=== PATIENT | male | born 1990 | race African-American/Black ===

== ENCOUNTER 2018-07-17 22:05 | Emergency (ER) | payer OTHER ==
[~2018-07-17] VITALS: Ht 165.1 cm; Wt 117.0 kg
[2018-07-17 22:12] VITALS: BP 135/60
--- NOTE | 2018-07-17 22:23 | NUR ---
PT TAKEN TO BED 1
--- NOTE | 2018-07-17 22:59 | NUR ---
PT BIB FAMILY FOR RT HAND PAIN, REDNESS AND SWELLING. PT STATES HE WAS "PULLING WEEDS" EARLIER TODAY AND THINK HE MAY HAVE BITTEN BY A SPIDER. NO OPEN SKIN NOTED, +CMS , SKIN IS WARM AND DRY, REDNESS NOTED TO KNUCKLES. PT IS LAYING IN BED MOTHER AT BEDSIDE.
--- NOTE | 2018-07-17 23:02 | NUR ---
Dr. Avila evaluating patient at bedside.
[2018-07-17] MEDS ORDERED: KETOROLAC 60 MG/2 ML VIAL IM ONE (23:10)
[2018-07-17 23:54] VITALS: BP 128/85
--- NOTE | 2018-07-17 23:54 | NUR ---
Patient discharged with v/s stable. Written and verbal after care instructions given and explained. Patient alert, oriented and verbalized understanding of instructions. Ambulatory with steady gait. All questions addressed prior to discharge. ID band removed. Patient advised to follow up with PMD. Rx of BACTRIM 800MG-160MG, MOTRIN 800MG AND PREDNISONE 20MG given. Patient educated on indication of medication including possible reaction and side effects. Opportunity to ask questions provided and answered.
== END 2018-07-17 23:54 | disposition home or self-care (01) ==
LOC: MED 22:05
DX: L03.113 Cellulitis of right upper limb (principal); E11.9 Type 2 diabetes mellitus without complications; Z88.1 Allergy status to other antibiotic agents
CPT/HCPCS: 96372; 99283; J1885

== ENCOUNTER 2018-08-16 20:38 | Inpatient (IN) | payer OTHER ==
[~2018-08-16] VITALS: Ht 165.1 cm; Wt 122.5 kg
[2018-08-16 21:02] VITALS: BP 164/83
[2018-08-16] MEDS ORDERED: HUMSLIDE (21:08)
[2018-08-16] MEDS ORDERED: GLIP10TE PO (21:08)
[2018-08-16] MEDS ORDERED: LISI10TA11 PO (21:08)
--- NOTE | 2018-08-16 21:15 | NUR ---
Note undone in EDM - 08/17/18 at 0241 by [email or web address] 28/M BIB PARENT TO ICU ROOM O1. STEADY GAIT. AO X4. FOLLOWS COMMANDS. CC: ELEVATED BLOOD SUGAR 500S mgdL. DENIES HAVING DINNER ON ZOCOR AND LISINOPRIL. HX OF OBESITY AND DM. DENIES PAIN. EVEN UNLABORED BREATHING. NO SIGNS OF ACUTE DISTRESS. CONTINUE TO MONITOR.
--- NOTE | 2018-08-16 21:15 | NUR ---
28/M BIB PARENT TO ER ROOM O1. STEADY GAIT. AO X4. FOLLOWS COMMANDS. CC: ELEVATED BLOOD SUGAR 500S mgdL. DENIES HAVING DINNER ON ZOCOR AND LISINOPRIL. HX OF OBESITY AND DM. DENIES PAIN. EVEN UNLABORED BREATHING. NO SIGNS OF ACUTE DISTRESS. CONTINUE TO MONITOR.
[2018-08-16] MEDS ORDERED: NACL 0.9% 2,000 ML IV ONE (21:19)
[2018-08-16 23:02] LABS: ALBUMIN 3.4 g/dL (3.4-5.0); ANION GAP 13.8 (8-16); CARBON DIOXIDE 27.4 mmol/L (21-32); POTASSIUM 4.2 mmol/L (3.5-5.1); TOTAL BILIRUBIN 0.1 mg/dL (0.0-1.0)
[2018-08-16] MEDS ORDERED: INSULIN REGULAR, HUMAN 100 UNIT/ML VIAL IVP ONE (23:10)
--- NOTE | 2018-08-17 00:07 | NUR ---
Patient appears to be resting in bed, with dad at bedside. Vital Signs within normal limits. Respirations even and unlabored.
--- NOTE | 2018-08-17 00:13 | NUR ---
PT AMB WITH RN RICH TO [facility].
--- NOTE | 2018-08-17 02:15 | NUR ---
ENDORSED CARE TO BETHEL ALMANZA FOR CONTINUITY OF CARE.
[2018-08-17 02:25] VITALS: BP 154/90
--- NOTE | 2018-08-17 02:25 | NUR ---
RECEIVED REPORT FROM DAYSHIFT NURSE AT BEDSIDE FOR CONTINUITY OF CARE. PT AAOX3. PT IV NOTED RFA 20G SALINE LOCK. NO SOB NO S/S OF DISTRESS ON RA. BED LOWERED CALL LIGHT WITHIN REACH WILL CONTINUE TO MONITOR.
--- NOTE | 2018-08-17 02:30 | NUR ---
PT WAS TOLD IN ER WE WOULD HAVE HIS CPAP READY FOR HIM WHEN HE CAME TO THE FLOOR. LET HIM KNOW I WOULD HAVE TO CHECK MD ORDERS TO GET CPAP MACHINE TO HIS ROOM. PT WAS ALSO EXPLAINED IF CPAP MACHINE WAS NOT ORDERED I WOULD HAVE TO CALL MD.
--- NOTE | 2018-08-17 02:40 | NUR ---
PAGEBal ESCOBEDO FOR ORDERS AND ORDER FOR BIPAP.
--- NOTE | 2018-08-17 02:45 | NUR ---
SPOKE TO MD ESCOBEDO RECEIVED VARIOUS ORDERS. I ADVISE MD IF I CAN GET AN ORDER FOR CPAP FOR SLEEPING, PT SUFFERS FROM SLEEP APNEA. MD ESCOBEDO AGREED AND TOLD ME TO PUT IN ORDERS.
[2018-08-17] MEDS ORDERED: INSULIN LANTUS 100 UNITS/ML 10 ML VIAL SUBQ SCH (02:55)
[2018-08-17] MEDS ORDERED: ACETAMINOPHEN 325 MG TAB PO PRN (02:55)
[2018-08-17] MEDS ORDERED: DEXTROSE 50% 50 ML SYR IVP PRN (02:55)
[2018-08-17] MEDS ORDERED: ONDANSETRON 4 MG/2 ML VIAL IVP PRN (02:55)
[2018-08-17] MEDS ORDERED: ZOLPIDEM 5 MG TAB PO PRN (02:55)
[2018-08-17] MEDS ORDERED: HYDROcodone/APAP 5/325 MG 1 TAB TAB PO PRN ×2 (02:55)
--- NOTE | 2018-08-17 03:30 | NUR ---
RT WAQAS WAS NOTIFIED. WAQAS STATED SHE NEEDED SPECIFIC SETTINGS ON MACHINE. AWARE AND PAGED MD ESCOBEDO.
[2018-08-17] MEDS: NACL 0.9% 1,000 ML IV SCH ×2 (03:31→14:19)
--- NOTE | 2018-08-17 04:10 | NUR ---
GREGG DIDNT ANSWER 1ST PAGED AND WAS PAGED A SECOND TIME.
--- NOTE | 2018-08-17 05:38 | NUR ---
PT SLEEPING NO SOB NO S/S OF DISTRESS ON RA. STILL WAITING ON MD ESCOBEDO CALL BACK. PAGED GREGG TWO TIMES.
--- NOTE | 2018-08-17 06:05 | NUR ---
PAGED MD ESCOBEDO FOR A THIRD TIME. WILL WAIT FOR CALL BACK.
[2018-08-17] MEDS: INSULIN LISPRO SLIDING SCALE 100 UNITS/ML VIAL SUBQ PRN ×4 (06:42→21:58)
[2018-08-17] MEDS: BLOOD GLUCOSE MONITORING 1 DEV DEV FS SCH ×4 (06:42→21:28)
--- NOTE | 2018-08-17 07:28 | NUR ---
ENDORSED REPORT TO DAYSHIFT NURSE AT BEDSIDE FOR CONTINUITY OF CARE.
--- NOTE | 2018-08-17 07:33 | NUR ---
RECEIVED PT FROM MANAGER CLINICAL RESEARCH NURSE, PT IS AWAKE AND ALERT AND IS SEATED ON THE BED WITH SIDE RAILS UP AND CALL LIGHT WITHIN REACH. PT HAS AN IV LINE ON THE RT FA G.20 WITH NS AT 80ML/HR, INFUSING, INTACT. PT DENIES PAIN AND NO SOB NOTED. PT IS AMBULATORY AND NO SIGN OF DISTRESS NOTED. WILL CONTINUE TO MONITOR PT.
--- NOTE | 2018-08-17 07:52 | NUR ---
PATIENT HAS BEEN SCREENED AND CATEGORIZED HIGH NUTRITION RISK. PATIENT WILL BE SEEN WITHIN 1-2 DAYS OF ADMISSION. 08/17/18-08/18/[address]
[2018-08-17 08:00] VITALS: BP 156/88
--- NOTE | 2018-08-17 08:37 | NUR ---
DR. VALDES CAME TO THE PT'S ROOM AND IS TALKING TO THE PT AND THE PT'S DAD IN THE CP NOW.
[2018-08-17] MEDS: LISINOPRIL 10 MG TAB PO SCH (08:51)
[2018-08-17] MEDS: ENOXAPARIN 40 MG/0.4 ML SYR SUBQ SCH (08:53)
--- NOTE | 2018-08-17 08:53 | NUR ---
PT IS AWAKE AND SEATED ON THE BED, VITAL SIGNS TAKEN PRIOR TO MEDICATION ADMINISTRATION AND IS WITHIN NORMAL LIMIT. PT TOLERATED THE ORAL MEDICATIONS, NO SIGN OF DISTRESS NOTED AND WILL MONITOR PT.
[2018-08-17] MEDS ORDERED: glipiZIDE ER 5 MG TABER PO SCH (09:00)
--- NOTE | 2018-08-17 09:25 | NUR ---
DR. VALDES MADE A VERBAL ORDER OF CBC AND HEMOGLOBIN A1C TO BE PLACE FOR THE PT, ACKNOWLEDGED, READ BACK AND VERIFIED AND WILL CARRY OUT MD ORDER NOW.
--- NOTE | 2018-08-17 09:52 | NUR ---
CM NOTE PER NORA [facility] (PCP) PH# [phone], THE PATIENT IS SCHEDULED FOR OUTPATIENT FOLLOW UP ON AUGUST 22, 2018 2:30 PM AT THE CLINIC AT [address] [place] [address]. I GAVE THE PATIENT A COPY OF HIS OUTPATIENT FOLLOW UP SCHEDULE.
[2018-08-17 12:44] LABS: BASOPHILS % (AUTO) 0.3 % (0.0-2.0); EOSINOPHILS # (AUTO) 0.3 K/uL (0-0.4); EOSINOPHILS % (AUTO) 2.7 % (0.0-4.0); HEMATOCRIT 39.8 % (36-52); HEMOGLOBIN 12.7 g/dL (12.0-18.0); LYMPHOCYTES # (AUTO) 4.7 K/uL (2.0-11.5); LYMPHOCYTES % (AUTO) 39.2 % (20.5-51.1); MEAN CORPUSCULAR HEMOGLOBIN 26 pg (27-31); MEAN CORPUSCULAR HGB CONC 32 g/dL (33-37); MEAN CORPUSCULAR VOLUME 82.8 fL (80-94); MONOCYTES # (AUTO) 0.9 K/uL (0.8-1.0); MONOCYTES % (AUTO) 7.4 % (1.7-9.3); NEUTROPHILS # (AUTO) 6.1 K/uL (1.8-7.7); NEUTROPHILS % (AUTO) 50.4 % (42.2-75.2); PLATELET COUNT (AUTO) 214 K/uL (140-450); RED CELL DISTRIBUTION WIDTH 14.1 % (11.6-13.7)
--- NOTE | 2018-08-17 13:39 | NUR ---
08/17/18 RD INITIAL ASSESSMENT COMPLETED PLEASE REFER TO NUTRITION ASSESSMENT UNDER CARE ACTIVITY FOR ESTIMATED NUTRITIONAL NEEDS. 1. CONTINUE 60 GM CCHO DIET TOLERATED 2. RD ATTEMPTED DM NUTRITION EDUCATION, LEFT AT BEDSIDE 3. RD TO FOLLOW-UP 5-7 DAYS, LOW RISK DAYANARA JOSEPH, RD
[2018-08-17 16:00] VITALS: BP 131/99
--- NOTE | 2018-08-17 16:40 | NUR ---
PT IS AWAKE AND VITAL SIGN TAKEN AND IS WITHIN NORMAL LIMITS, BLOOD GLUCOSE CHECK DONE AND RESULT IS 217, INSULIN COVERAGE NEEDED. NO SIGN OF DISTRESS NOTED. WILL MONITOR PT.
--- NOTE | 2018-08-17 16:55 | NUR ---
PT'S MON CAME TO THE ROOM AND MOTHER INFORMED THAT PT SHOULD ONLY BE GIVEN 800 CALORIES/DAY SO TO STABILIZE THE BLOOD SUGAR PER ROUTINE AT HOME. ACKNOWLEDGED AND WILL ENDORSE TO DRAW FRAME OPERATOR NURSE.
--- NOTE | 2018-08-17 19:20 | NUR ---
ENDORSED PT TO POLITICAL ORGANIZER NURSE FOR CONTINUITY OF CARE, PT TIS STABLE AT THIS TIME.
--- NOTE | 2018-08-17 19:21 | NUR ---
RECEIVED BEDSIDE REPORT FROM ABI ALMANZA. PT IS A&OX4. ON ROOM AIR. NO S/S OF DISTRESS. PT HAS CONCERNS REGARDING CPAP MACHINE FOR TONIGHT AND MED HE NORMAL GETS GLIPIZIDE 10MG BID WILL CALL MD FOR ORDER. IV ON R FA 20G IVF INFUSING PER ORDERS. SKIN INTACT. CALL LIGHT WITHIN REACH.
--- NOTE | 2018-08-17 19:40 | NUR ---
PTS FATHER CAME AND BROUGHT HOMES CPAP FOR SETTINGS. RT RECEIVED. HE HAS CONCERNS REGARDING HIS DIET AND WROTE DOWN WHAT PT CAN EAT. WILL ENDORSED TO CODER OPERATOR.
[2018-08-17] MEDS ORDERED: glipiZIDE 10 MG TAB PO SCH (21:00)
[2018-08-17] MEDS: glipiZIDE 10 MG TAB PO SCH (21:53)
--- NOTE | 2018-08-17 21:53 | NUR ---
DUE MEDICATIONS GIVEN PT TOLERATED WELL. ON CPAP MACHINE. ALL NEEDS MET AT THIS TIME. WILL CONTINUE TO MONITOR.
--- NOTE | 2018-08-17 23:35 | NUR ---
PT COMPLAINED THAT CPAP MASK WAS ON TO TIGHT AND ALSO THAT THE AIR WAS TO MUCH DESPITE BEING THE SAME SETTINGS PT HAS AT HOME WHICH IS CPAP 13 21%. DESPITE EXPLAINING BENEFITS OF CPAP TO PT, PT REFUSED TO BE PLACED BACK ON CPAP. SAT 97 HR 76 RR 18. PT IS ON RA. WILL CONT TO MONITOR PT.
[2018-08-18] VITALS: BP 137/51
--- NOTE | 2018-08-18 | NUR ---
VITAL SIGNS ARE WITHIN NORMAL LIMITS. PT NOW REFUSING CPAP. ALL NEEDS MET AT THIS TIME. WILL CONTINUE TO MONITOR.
[2018-08-18] MEDS: NACL 0.9% 1,000 ML IV SCH ×4 (01:15→22:31)
--- NOTE | 2018-08-18 04:00 | NUR ---
PT IS SLEEPING COMFORTABLY IN BED. NO S/S OF DISTRESS. CALL LIGHT WITHIN REACH.
[2018-08-18 06:29] LABS: BASOPHILS % (AUTO) 0.2 % (0.0-2.0); EOSINOPHILS # (AUTO) 0.4 K/uL (0-0.4); HEMATOCRIT 39.5 % (36-52); HEMOGLOBIN 12.7 g/dL (12.0-18.0); LYMPHOCYTES # (AUTO) 4.8 K/uL (2.0-11.5); LYMPHOCYTES % (AUTO) 37.9 % (20.5-51.1); MEAN CORPUSCULAR HEMOGLOBIN 27 pg (27-31); MEAN CORPUSCULAR HGB CONC 32 g/dL (33-37); MEAN CORPUSCULAR VOLUME 83.1 fL (80-94); NEUTROPHILS # (AUTO) 6.4 K/uL (1.8-7.7); NEUTROPHILS % (AUTO) 50.9 % (42.2-75.2); PLATELET COUNT (AUTO) 213 K/uL (140-450); RED BLOOD CELL COUNT(AUTO) 4.75 MIL/uL (4.20-6.10); RED CELL DISTRIBUTION WIDTH 13.7 % (11.6-13.7); WHITE BLOOD COUNT (AUTO) 12.5 K/uL (4.8-10.8)
[2018-08-18] MEDS: BLOOD GLUCOSE MONITORING 1 DEV DEV FS SCH ×4 (06:31→20:47)
[2018-08-18 06:33] LABS: ALBUMIN 2.6 g/dL (3.4-5.0); ANION GAP 11.3 (8-16); CARBON DIOXIDE 27.7 mmol/L (21-32); CREATININE 0.6 mg/dL (0.7-1.3); TOTAL BILIRUBIN 0.3 mg/dL (0.0-1.0)
[2018-08-18] MEDS: glipiZIDE 10 MG TAB PO SCH ×2 (06:34→17:06)
[2018-08-18] MEDS: INSULIN LISPRO SLIDING SCALE 100 UNITS/ML VIAL SUBQ PRN ×5 (06:35→20:49)
--- NOTE | 2018-08-18 07:34 | NUR ---
GAVE BEDSIDE REPORT. ENDORSED PT IN STABLE CONDITION.
--- NOTE | 2018-08-18 07:38 | NUR ---
RECEIVED BEDSIDE REPORT FROM STARCH FACTORY LABORER NURSE. PT IS A/OX4. DENIES PAIN. NO SIGNS OF DISTRESS NOTED. ON RA. ABLE TO FOLLOW COMMEND. SKIN WARM, CLEAN AND INTACT. RESPIRATION UNLABORED AT 18, REGULAR. IV ON R FA 20G, PATENT AND CLEAN, INFUSING PER MD ORDER. ABLE TO AMBULATE WITH STEADY GAIT. DISCUSSED PLAN OF CARE WITH PATIENT, AND PATIENT VERBALIZED UNDERSTANDING. BED IN LOW POSITION, CALL LIGHT WITHIN REACH.
[2018-08-18 08:00] VITALS: BP 144/69
[2018-08-18] MEDS ORDERED: INSULIN LANTUS 100 UNITS/ML 10 ML VIAL SUBQ SCH (09:30)
--- NOTE | 2018-08-18 09:30 | NUR ---
PT IS AMBULATING AROUND THE DING WAY. NO SIGNS OF DISTRESS NOTED.
[2018-08-18] MEDS: LISINOPRIL 10 MG TAB PO SCH (09:59)
[2018-08-18] MEDS: ENOXAPARIN 40 MG/0.4 ML SYR SUBQ SCH (10:12)
--- NOTE | 2018-08-18 10:16 | NUR ---
ADMINISTERED MEDS PER MED ORDER. PT TOLERATED WELL. NO SIGNS OF DISTRESS NOTED.
[2018-08-18] MEDS: INSULIN LISPRO 100 UNITS/ML VIAL SUBQ SCH ×2 (11:30→17:12)
--- NOTE | 2018-08-18 12:21 | NUR ---
ADMINISTERED MED PER ORDER. PT TOLERATED WELL.
[2018-08-18 16:00] VITALS: BP 157/77
--- NOTE | 2018-08-18 16:30 | NUR ---
IV INFILTRATED. D/C IV ON THE R FA, IV CANNULA INTACT, NO BLEEDING AT IV SITE. RESTARTED IV 22G ON L FA, INTACT AND PATENT, INFUSING PER MD ORDER. .
--- NOTE | 2018-08-18 17:35 | NUR ---
PT IS AMBULATING WITH STEADY GAIT AROUND THE DING WAY. NO SIGN OF DISTRESS NOTED.
--- NOTE | 2018-08-18 19:32 | NUR ---
GAVE BEDSIDE REPORT TO SCOREBOARD OPERATOR NURSE FOR CONTINUITY OF CARE. PT IS IN STABLE CONDITION.
--- NOTE | 2018-08-18 19:35 | NUR ---
RECEIVED FROM AM RN AWAKE AND ALERT. DX. UNCONTROLLED DM. PT. IS AMBULATING THE HALLWAYS. IVF SITE INTACT AND NO INFILTRATION TO LEFT FOREARM. NO PAIN COMPLAINT DONE. ENCOURAGED TO CALL FOR ANY HELP HE MAY NEED.
--- NOTE | 2018-08-18 19:50 | NUR ---
PT. BACK IN BED AND TALKING TO FAMILY MEMBER ON THE PHONE. IVF ALARMING RT NO BATTERY ATTACHED TO IT. HOOKED UP BATTERY. NO FURTHER COMPLAINTS DONE. GOOD AFFECT.
--- NOTE | 2018-08-18 20:53 | NUR ---
BLOOD SUGAR 330 PER FINGERSTICK CHECK DONE . COVERED WITH HUMALOG 8 UNITS PER SLIDING SCALE. ENCOURAGED TO SLEEP AND REST. STILL WATCHING . VERBALIZES NEEDS WELL IN [place]. ROM X 4.
--- NOTE | 2018-08-18 21:48 | NUR ---
AWAKE AND ALERT UP IN CHAIR AT THIS TIME RESPONSIVE TO AR MANAGER VERBAL COMMANDS PATIENT REFUSES TO WEAR CPAP TO MASK PATIENT STATES "IT IS NOT MY MASK AND THERE'S A LEAK I DON'T WANT TO WEAR IT" AR MANAGER STATED TO PATIENT THAT IF YOU WANT TO GO ON THE CPAP THEN TO USE YOUR CALL BUTTON THAT IS WITHIN REACH MASHA/RN NOTIFIED
--- NOTE | 2018-08-19 00:10 | NUR ---
PT. SLEEPING. WOKE UP EASILY WHEN TOUCHED. ABLE TO VERBALIZE NEEDS WELL. NO SOB. NO RESTLESSNESS NOTED. REFUSED CPAP ON PER RESPIRATORY THERAPIST. 02 SAT ROOM AIR AT THIS TIME 97 %.
[2018-08-19 00:48] VITALS: BP 143/61
--- NOTE | 2018-08-19 03:00 | NUR ---
SLEEPING. NO RESTLESSNESS. ABLE TO USE CALL LIGHT FOR HELP. IVF SITE INTACT AND NO S/S OF INFILTRATION.
--- NOTE | 2018-08-19 05:44 | NUR ---
SLEEPING . NO COMPLAINTS. NO S/S OF HYPOGLYCEMIA NOTED. PT. INDEPENDENT. NO SOB THIS SHIFT.
[2018-08-19] MEDS: BLOOD GLUCOSE MONITORING 1 DEV DEV FS SCH ×4 (05:56→21:03)
[2018-08-19] MEDS: glipiZIDE 10 MG TAB PO SCH ×2 (06:00→17:27)
[2018-08-19] MEDS: INSULIN LISPRO SLIDING SCALE 100 UNITS/ML VIAL SUBQ PRN ×3 (06:01→21:04)
[2018-08-19] MEDS: INSULIN LISPRO 100 UNITS/ML VIAL SUBQ SCH (06:09)
--- NOTE | 2018-08-19 06:10 | NUR ---
HUMALOG INSULIN 5 UNITS NOT ADMINISTERED RT PT. COVERED WITH HUMALOG INSULIN PER SLIDING SCALE.
--- NOTE | 2018-08-19 07:05 | NUR ---
RECEIVED BEDSIDE REPORT FROM DISTRICT SCOUT EXECUTIVE NURSE. AOX4. DENIES PAIN. ON RA. RESPIRATION EVEN AND UNLABORED. IV ON L FA 22G, CLEAN AND INTACT, INFUSING PER MD ORDER. SKIN INTACT, CLEAN AND DRY. ABLE TO AMBULATE WITH STEADY GAIT. DISCUSSED PLAN OF CARE WITH PATIENT, AND PATIENT VERBALIZED UNDERSTANDING. SAFETY MEASURES IN PLACE. CALL LIGHT WITHIN REACH.
[2018-08-19 07:52] LABS: BASOPHILS % (AUTO) 0.4 % (0.0-2.0); EOSINOPHILS # (AUTO) 0.3 K/uL (0-0.4); EOSINOPHILS % (AUTO) 3.1 % (0.0-4.0); HEMATOCRIT 38.8 % (36-52); HEMOGLOBIN 12.6 g/dL (12.0-18.0); LYMPHOCYTES # (AUTO) 3.7 K/uL (2.0-11.5); LYMPHOCYTES % (AUTO) 35.8 % (20.5-51.1); MEAN CORPUSCULAR HEMOGLOBIN 27 pg (27-31); MEAN CORPUSCULAR HGB CONC 32 g/dL (33-37); MONOCYTES % (AUTO) 9.7 % (1.7-9.3); NEUTROPHILS # (AUTO) 5.3 K/uL (1.8-7.7); PLATELET COUNT (AUTO) 227 K/uL (140-450); RED BLOOD CELL COUNT(AUTO) 4.67 MIL/uL (4.20-6.10); RED CELL DISTRIBUTION WIDTH 13.6 % (11.6-13.7); WHITE BLOOD COUNT (AUTO) 10.5 K/uL (4.8-10.8)
[2018-08-19 08:00] VITALS: BP 179/83
[2018-08-19 08:01] LABS: ALBUMIN 2.6 g/dL (3.4-5.0); ANION GAP 10.9 (8-16); CARBON DIOXIDE 27.2 mmol/L (21-32); CREATININE 0.6 mg/dL (0.7-1.3); POTASSIUM 4.1 mmol/L (3.5-5.1); TOTAL BILIRUBIN 0.4 mg/dL (0.0-1.0)
--- NOTE | 2018-08-19 08:32 | NUR ---
PT COMPLAINED THAT HIS SKIN AROUND THE IV SITE IS ITCHY AND STATED "THE TAPE MAKES MY SKIN ITCHY AND I NEED TO CHANGE THE TAPE AROUND THE SITE". CHANGED THE TAPE AND TRANSPARENT FILM DRESSING.
[2018-08-19] MEDS: LISINOPRIL 10 MG TAB PO SCH (08:35)
[2018-08-19] MEDS: ENOXAPARIN 40 MG/0.4 ML SYR SUBQ SCH (08:36)
--- NOTE | 2018-08-19 08:36 | NUR ---
DR VALDES IS TALKING TO THE PT AT THE BEDSIDE.
--- NOTE | 2018-08-19 08:43 | NUR ---
ADMINISTERED MEDS PER MD ORDER. PT IS TOLERATED WELL. NO SIGNS OF DISTRESS NOTED.
--- NOTE | 2018-08-19 08:51 | NUR ---
D/C IVF PER MD ORDER.
[2018-08-19] MEDS ORDERED: INSULIN LANTUS 100 UNITS/ML 10 ML VIAL SUBQ SCH (09:00)
--- NOTE | 2018-08-19 12:17 | NUR ---
ADMINISTERED HUMALOG PER MD ORDER, ACCORDING TO THE HUMALOG SLIDING SCALE.
--- NOTE | 2018-08-19 15:20 | NUR ---
PT IS DOING HOMEWORK ON HIS BED. NO SIGN OF DISTRESS NOTED.
[2018-08-19 16:00] VITALS: BP 141/75
--- NOTE | 2018-08-19 17:18 | NUR ---
PATIENT IS WALKING AROUND THE DING WAY WITH STEADY GAIT.
[2018-08-19] MEDS: INSULIN NPH HUM/REG INSULIN HM 100 UNIT/ML 10 ML VIAL SUBQ SCH (17:29)
--- NOTE | 2018-08-19 19:16 | NUR ---
GAVE BEDSIDE REPORT TO SSN/SSBN ASSISTANT NAVIGATOR NURSE FOR CONTINUITY OF CARE. PT IS IN STABLE CONDITION.
--- NOTE | 2018-08-19 19:17 | NUR ---
RECD. SITTING ON BED, AWAKE, A/OX4, CHILDISH. RESPIRATION EVEN AND UNLABORED. WATCHING TV. IV SALINE LOCK AT THE LEFT FOREARM G22, PATENT AND INTACT. PLAN OF CARE FOR THE SHIFT DISCUSSED. VERBALIZED UNDERSTANDING. DENIES PAIN 0/10.
--- NOTE | 2018-08-19 21:05 | NUR ---
SNACK GIVEN FOR THE NIGHT. ATE 100%.
--- NOTE | 2018-08-19 23:00 | NUR ---
STILL AWAKE, WATCHING TV.
[2018-08-20] VITALS: BP 144/65
--- NOTE | 2018-08-20 | NUR ---
REFUSED TO BE PUT ON CPAP. EXPLAINED IT'S IMPORTANCE, STILL REFUSED.
--- NOTE | 2018-08-20 00:30 | NUR ---
SLEEPING COMFORTABLY IN BED.
--- NOTE | 2018-08-20 04:00 | NUR ---
STILL SLEEPING IN BED. NO COMPLAINT OF PAIN 0/10.
[2018-08-20] MEDS: BLOOD GLUCOSE MONITORING 1 DEV DEV FS SCH ×2 (05:40→11:30)
[2018-08-20] MEDS: INSULIN LISPRO SLIDING SCALE 100 UNITS/ML VIAL SUBQ PRN ×2 (05:43→12:52)
[2018-08-20] MEDS: glipiZIDE 10 MG TAB PO SCH (06:49)
[2018-08-20] MEDS: INSULIN NPH HUM/REG INSULIN HM 100 UNIT/ML 10 ML VIAL SUBQ SCH (06:51)
--- NOTE | 2018-08-20 07:25 | NUR ---
ENDORSED TO AM SHIFT NURSE FOR CONTINUITY OF CARE.
--- NOTE | 2018-08-20 07:26 | NUR ---
RECEIVED REPORT FROM INBOUND TELEMARKETER NURSE. PT IN STABLE CONDITION. RESPIRATIONS EVEN AND UNLABORED. IV INTACT AND PATENT. CALL LIGHT AT BEDSIDE. BED IN LOW POSITION. WILL CONTINUE TO MONITOR.
[2018-08-20 07:53] LABS: BASOPHILS % (AUTO) 0.2 % (0.0-2.0); EOSINOPHILS # (AUTO) 0.4 K/uL (0-0.4); EOSINOPHILS % (AUTO) 3.1 % (0.0-4.0); HEMATOCRIT 40.3 % (36-52); LYMPHOCYTES # (AUTO) 4.4 K/uL (2.0-11.5); LYMPHOCYTES % (AUTO) 36.5 % (20.5-51.1); MEAN CORPUSCULAR HEMOGLOBIN 27 pg (27-31); MEAN CORPUSCULAR HGB CONC 32 g/dL (33-37); MEAN CORPUSCULAR VOLUME 83.6 fL (80-94); MONOCYTES # (AUTO) 1.2 K/uL (0.8-1.0); MONOCYTES % (AUTO) 10.1 % (1.7-9.3); NEUTROPHILS # (AUTO) 6.1 K/uL (1.8-7.7); NEUTROPHILS % (AUTO) 50.1 % (42.2-75.2); PLATELET COUNT (AUTO) 250 K/uL (140-450); RED BLOOD CELL COUNT(AUTO) 4.82 MIL/uL (4.20-6.10); WHITE BLOOD COUNT (AUTO) 12.1 K/uL (4.8-10.8)
[2018-08-20 08:00] VITALS: BP 172/79
[2018-08-20 08:01] LABS: ANION GAP 8.9 (8-16); CARBON DIOXIDE 30.2 mmol/L (21-32); CREATININE 0.7 mg/dL (0.7-1.3); POTASSIUM 4.1 mmol/L (3.5-5.1); TOTAL BILIRUBIN 0.4 mg/dL (0.0-1.0)
[2018-08-20] MEDS: LISINOPRIL 10 MG TAB PO SCH (09:07)
[2018-08-20] MEDS: ENOXAPARIN 40 MG/0.4 ML SYR SUBQ SCH (09:08)
--- NOTE | 2018-08-20 09:16 | NUR ---
GAVE ORDERED DUE MEDICATION AT THIS TIME. PT TOLERATED WELL. WILL CONTINUE TO MONITOR.
[2018-08-20] MEDS ORDERED: HUM7030 SUBQ (09:57)
--- NOTE | 2018-08-20 10:44 | NUR ---
PT WALKING AROUND TELE UNIT IN STABLE CONDITION. WILL CONTINUE TO MONITOR.
--- NOTE | 2018-08-20 12:02 | NUR ---
PT GIVEN 6 UNITS INSULIN. BLOOD SUGAR 282. PT IN STABLE CONDITION. WILL CONTINUE TO MONITOR.
--- NOTE | 2018-08-20 13:07 | NUR ---
GAVE DISCHARGE INSTRUCTIONS AND PRESCRIPTION FOR HOME PHARMACY, PT VERBALIZED UNDERSTANDING AT THIS TIME. IV REMOVED, LUMEN INTACT. ID BAND REMOVED. PT REFUSED WHEELCHAIR STATING HE WANTED TO GET HIS STEPS IN. PT WAS ESCORTED TO LOBBY WHERE FAMILY WAS WAITING WITH CAR. PT IN STABLE CONDITION.
== END 2018-08-20 14:10 | disposition home or self-care (01) | DRG 420 ==
LOC: MED 20:38 → MTU 08-17 01:42
PROVIDERS: ADMIT Internal Medicine; ATTEND Internal Medicine
PROC: 5A09357 Assistance with Respiratory Ventilation, Less than 24 Consecutive Hours, Continuous Positive Airway Pressure (ICD-10-PCS; principal; 2018-08-18)
DX: E11.65 Type 2 diabetes mellitus with hyperglycemia (principal); Z68.41 Body mass index [BMI] 40.0-44.9, adult; E87.1 Hypo-osmolality and hyponatremia; E66.9 Obesity, unspecified; I10 Essential (primary) hypertension; G47.30 Sleep apnea, unspecified; Z88.1 Allergy status to other antibiotic agents; Z88.8 Allergy status to other drugs, medicaments and biological substances; Z91.11 Patient's noncompliance with dietary regimen
CPT/HCPCS: 36415; 80053; 82948; 83036; 83690; 85025; 87081; 94660; 96374; 99285; J1650; J1815; J7030

== ENCOUNTER 2018-11-23 19:25 | Observation (INO) | payer OTHER ==
[~2018-11-23] VITALS: Ht 162.6 cm; Wt 122.5 kg
[~2018-11-23 19:25] MED LIST: GLIP10TE PO; HUM7030 SUBQ; LISI10TA11 PO
[2018-11-23 19:43] VITALS: BP 176/76
--- NOTE | 2018-11-23 19:44 | NUR ---
PT AMBULATED TO ER BED 2
--- NOTE | 2018-11-23 20:00 | NUR ---
28/M BIB FATHER, C/O ELEVATED BLOOD SUGAR. 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 BLOOD GLUCOSE 421 AT THIS TIME. PT DENIES FEVER, CP, N/V/D, CONSTIPATION. AOX4, SKIN NORMAL WARM DRY, RR EVEN AND UNLABORED. HX DM, HTN, CRAVING SYNDROME RX HUMULIN 75-25 46 UNITS BID, GLIPIZIDE, LISINOPRIL
[2018-11-23] MEDS ORDERED: NACL 0.9% 1,000 ML IV ONE (20:10)
[2018-11-23 20:41] LABS: BASOPHILS # (AUTO) 0.1 K/uL (0.00-0.22); BASOPHILS % (AUTO) 0.5 % (0.0-2.0); EOSINOPHILS # (AUTO) 0.2 K/uL (0-0.4); EOSINOPHILS % (AUTO) 1.5 % (0.0-4.0); HEMATOCRIT 41.1 % (36-52); HEMOGLOBIN 13.2 g/dL (12.0-18.0); LYMPHOCYTES # (AUTO) 3.7 K/uL (2.0-11.5); LYMPHOCYTES % (AUTO) 32.4 % (20.5-51.1); MEAN CORPUSCULAR HEMOGLOBIN 27 pg (27-31); MEAN CORPUSCULAR HGB CONC 32 g/dL (33-37); MEAN CORPUSCULAR VOLUME 83.7 fL (80-94); MONOCYTES # (AUTO) 0.9 K/uL (0.8-1.0); MONOCYTES % (AUTO) 7.7 % (1.7-9.3); NEUTROPHILS # (AUTO) 6.6 K/uL (1.8-7.7); NEUTROPHILS % (AUTO) 57.9 % (42.2-75.2); PLATELET COUNT (AUTO) 265 K/uL (140-450); RED BLOOD CELL COUNT(AUTO) 4.91 MIL/uL (4.20-6.10); WHITE BLOOD COUNT (AUTO) 11.4 K/uL (4.8-10.8)
[2018-11-23 20:57] LABS: ALBUMIN 3.3 g/dL (3.4-5.0); ANION GAP 13.4 (8-16); CREATININE 0.9 mg/dL (0.7-1.3); POTASSIUM 4.4 mmol/L (3.5-5.1); TOTAL BILIRUBIN 0.1 mg/dL (0.0-1.0)
[2018-11-23] MEDS ORDERED: INSULIN REGULAR, HUMAN 100 UNIT/ML VIAL IVP ONE ×2 (21:45→23:40)
[2018-11-23 21:50] LABS: APPEARANCE,URINE CLEAR (CLEAR); BILIRUBIN,URINE NEGATIVE (NEGATIVE); BLOOD, URINE NEGATIVE (NEGATIVE); COLOR,URINE YELLOW (YELLOW); LEUKOCYTE ESTERASE ,URINE NEGATIVE (NEGATIVE); NITRITE, URINE NEGATIVE (NEGATIVE); UGLUCOSE 3+ (NEGATIVE)
--- NOTE | 2018-11-23 22:42 | NUR ---
PT LAYING IN BED, FATHER AT BEDSIDE. RR EVEN AND UNLABORED. VSS. BLOOD GLUCOSE 392 AT THIS TIME AFTER 1L NS BOLUS AND HUMULIN R [address] MARQUEZ MADE AWARE
--- NOTE | 2018-11-24 00:40 | NUR ---
PT LAYING IN BED, FATHER AT BEDSIDE. RR EVEN AND UNLABORED. VSS. BLOOD GLUCOSE 446 AT THIS TIME AFTER MEDS. DR MARQUEZ MADE AWARE
[2018-11-24] MEDS ORDERED: INSU10SU2 SC (01:04)
--- NOTE | 2018-11-24 02:48 | NUR ---
RECEIVED TELEPHONE ORDER FROM DR PLATA, ADMIT ORDER DX DIABETES POOR CONTROL, MEDSURG, OBSERVATION ONLY, AND INSULIN SLIDING SCALE ORDER SET.
[2018-11-24] MEDS ORDERED: DEXTROSE 50% 50 ML SYR IVP PRN ×2 (02:50→06:15)
--- NOTE | 2018-11-24 02:53 | NUR ---
PT LAYING IN BED, RR EVEN AND UNLABORED. VSS. ALL NEEDS MET.
--- NOTE | 2018-11-24 03:03 | NUR ---
Patient will be admitted to care of DR PLATA. Admited to [facility]. Will go to [id number]. Belongings list completed. Report to CAMI FLANAGAN.
--- NOTE | 2018-11-24 03:19 | NUR ---
RECEIVED FROM ER PER WHEELCHAIR AWAKE AND ALERT. ABLE TO CARRY A CONVERSATION WELL. VERBALIZES WELL IN [place]. NO SOB. DENIES ANY PAIN AT THIS TIME. ORIENTED TO CALL LIGHT USE AND TO SURROUNDINGS. DX. OF DM POOR CONTROL . PT. SKIN INTACT AND AMBULATING WELL. IVF SITE TO [facility] . GOOD BLOOD RETURN. ENCOURAGED TO CALL FOR ANY HELP HE MAY NEED OR IF IN PAIN. "OK"
[2018-11-24 03:37] VITALS: BP 141/56
--- NOTE | 2018-11-24 05:11 | NUR ---
PT. BEEN SLEEPING WELL. NO COMPLAINTS DONE. ABLE TO VERBALIZE NEEDS WELL. ROM X 4. CLEAR SPEECH. NO RESTLESSNESS.
[2018-11-24] MEDS: BLOOD GLUCOSE MONITORING 1 DEV DEV FS SCH ×4 (06:03→20:44)
--- NOTE | 2018-11-24 06:11 | NUR ---
MD PLATA PAGED AND CALLED BACK IMMEDIATELY. INFORMED HIM THAT HIS PT. HAS BLOOD SUGAR OF 489 PER FINGERSTICK. ORDERED TO GIVE 16 UNITS. PT. MADE AWARE.
[2018-11-24] MEDS ORDERED: INSULIN LISPRO SLIDING SCALE 100 UNITS/ML VIAL SUBQ PRN (06:15)
[2018-11-24] MEDS ORDERED: ONDANSETRON 4 MG/2 ML VIAL IVP PRN (06:15)
[2018-11-24] MEDS: INSULIN LISPRO SLIDING SCALE 100 UNITS/ML VIAL SUBQ PRN ×5 (06:20→20:46)
--- NOTE | 2018-11-24 06:37 | NUR ---
PT. REFUSED TO WAKE UP WHEN HUMALOG WAS ADMINISTERED. REFUSED TO OPEN EYES INSPITE OF MAKING HIM WAKE UP BY TOUCHING HIM AND SWAYING HIM BACK AND FORT. CALLED RAPID RESPONSE. WHEN RAPID RESPONSE WAS HERE HE FINALLY WOKE UP BY CONSTANT SHAKING BY CNAS AND NURSED. HE SAID "WHAT" HE STATED HE IS A DEEP SLEEPER AND DOES NOT WAKE UP EASILY. MST DIRECTOR WAS HERE WHEN IT HAPPENED. AWARE OF SITUATION. DIRECTOR ORDERED TO PUT PT. ON TELEMETRY MONITORING.
--- NOTE | 2018-11-24 07:17 | NUR ---
NS IVF STARTED ORDERED AT 125 ML/H. PT. SLEEPING AT THIS TIME. CALL LIGHT WITH IN REACH. WILL ENDORSE TO NEXT RN FOR CONTINUITY OF CARE.
[2018-11-24] MEDS: NACL 0.9% 1,000 ML IV SCH ×3 (07:18→22:19)
--- NOTE | 2018-11-24 07:23 | NUR ---
RECEIVED REPORT FROM GOLF BALL WINDER RN. PT IS AAOX4. NO SOB OR PAIN AT THIS TIME. DISCUSSED PLAN OF CARE WITH PT AND ORIENTED TO CALL LIGHT USE AND TO SURROUNDINGS. PT SKIN INTACT AND AMBULATING WELL. IVF SITE TO [facility]#20 . PATENT AND INTACT. WILL ROUND FREQUENTLY ON PT. CALL LIGHT WITHIN REACH, BED IN LOWEST POSITION.
[2018-11-24] MEDS ORDERED: BLOOD GLUCOSE MONITORING 1 DEV DEV FS SCH (07:30)
[2018-11-24 08:00] VITALS: BP 173/74
--- NOTE | 2018-11-24 08:16 | NUR ---
PATIENT HAS BEEN SCREENED AND CATEGORIZED HIGH NUTRITION RISK. PATIENT WILL BE SEEN WITHIN 1-2 DAYS OF ADMISSION. 11/24/18-11/25/[address]
[2018-11-24] MEDS ORDERED: INSULIN LANTUS 100 UNITS/ML 10 ML VIAL SUBQ SCH (09:00)
[2018-11-24] MEDS: LISINOPRIL 10 MG TAB PO SCH (09:21)
[2018-11-24] MEDS: INSULIN NPH HUM/REG INSULIN HM 100 UNIT/ML 10 ML VIAL SUBQ SCH ×2 (09:24→20:48)
--- NOTE | 2018-11-24 09:40 | NUR ---
PT POC BS IS 449. NOTIFIED AND HE ORDERED 16 UNITS OF REGULAR INSULIN HUMALOG TO BE GIVEN ON TOP OF HUMALIN 70-30. PT TOLERATED ALL MEDS WELL. WILL CONTINUE TO ROUND FREQUENTLY ON PT.
[2018-11-24] MEDS ORDERED: glipiZIDE 10 MG TAB PO SCH (11:30)
--- NOTE | 2018-11-24 12:29 | NUR ---
ADMINISTERED MEDS TO PT. PT TOLERATED WELL. BS WAS 365, ADMINISTERED 10U HUMALOG. PT CURRENTLY EATING LUNCH SITTING AT EDGE OF BED. ALL NEEDS CURRENTLY MET. WILL CONTINUE TO ROUND FREQUENTLY ON PT.
--- NOTE | 2018-11-24 12:56 | NUR ---
Per request of patient, I provided an Advanced Directive to patient. Geochemist/Pipe Foreman will follow up as necessary.
--- NOTE | 2018-11-24 14:15 | NUR ---
11/24/18 RD INITIAL ASSESSMENT COMPLETED PLEASE REFER TO NUTRITION ASSESSMENT UNDER CARE ACTIVITY FOR ESTIMATED NUTRITIONAL NEEDS. 1. [facility] [address] TO FOLLOW-UP 3-5 DAYS, MODERATE RISK DAYANARA JOSEPH RD
--- NOTE | 2018-11-24 14:18 | NUR ---
CALLED OFFICE OF DR ABRAMS [phone], SPOKE TO NORA, FOLLOW-UP APPOINTMENT MADE ON 11/29/18 AT 9AM AT [address] [facility] [address], [place] [address]. COPY OF APPOINTMENT SCHEDULE GIVEN TO PATIENT, DAVIS ALMANZA MADE AWARE.
--- NOTE | 2018-11-24 14:57 | NUR ---
PT IN BED. NO NEEDS AT THIS TIME. WILL CONTINUE TO ROUND ON PT.
[2018-11-24 16:00] VITALS: BP 130/73
--- NOTE | 2018-11-24 18:58 | NUR ---
PT RESTING IN BED. WILL ROUND FREQUENTLY.
--- NOTE | 2018-11-24 19:47 | NUR ---
ENDORSED PT TO DONOR SPECIALIST FOR CONTINUITY OF CARE. PT IN STABLE CONDITION AT THIS TIME.
--- NOTE | 2018-11-24 19:48 | NUR ---
RECEIVED REPORT FROM DAY SHIFT NURSE DAVIS-CAMI AT BEDSIDE. PT RESTING IN BED, AOX4, ON ROOM AIR WITH LEFT FA #22G RUNNING NS @125ML/HR. DISCUSSED PLAN OF CARE AND PT VERBALIZED UNDERSTANDING. NO S/S OF RESPIRATORY DISTRESS OR DISCOMFORT NOTED AT THIS TIME. BED IN LOWEST POSITION, BED BREAKS ON, BOTH SIDE RAILS UP. BEDSIDE TABLE AND CALL LIGHT ARE WITHIN REACH. WILL CONTINUE TO MONITOR.
[2018-11-24 20:00] VITALS: BP 130/68
--- NOTE | 2018-11-24 20:00 | NUR ---
VITAL SIGNS TAKEN AND TOLERATED WELL. BLOOD GLUCOSE 332- WILL ADMINISTER INSULIN COVERAGE. NO S/S OF RESPIRATORY DISTRESS OR DISCOMFORT NOTED AT THIS TIME. WILL CONTINUE TO MONITOR.
--- NOTE | 2018-11-24 20:48 | NUR ---
SCHEDULED MEDICATION HUMULIN 70-30 AND INSULIN COVERAGE GIVEN AND TOLERATED WELL. NO S/S OF RESPIRATORY DISTRESS OR DISCOMFORT NOTED AT THIS TIME. WILL CONTINUE TO MONITOR.
--- NOTE | 2018-11-24 22:19 | NUR ---
IVF BAG COMPLETED AND NEW IVF BAG STARTED- NS @125ML/HR. PT TOLERATED WELL. NO S/S OF RESPIRATORY DISTRESS OR DISCOMFORT NOTED AT THIS TIME. WILL CONTINUE TO MONITOR.
--- NOTE | 2018-11-25 | NUR ---
VITAL SIGNS TAKEN AND TOLERATED WELL. NO S/S OF RESPIRATORY DISTRESS OR DISCOMFORT NOTED AT THIS TIME. WILL CONTINUE TO MONITOR.
--- NOTE | 2018-11-25 02:00 | NUR ---
PT SLEEPING AT THIS TIME. NO S/S OF RESPIRATORY DISTRESS OR DISCOMFORT NOTED AT THIS TIME. WILL CONTINUE TO MONITOR.
--- NOTE | 2018-11-25 07:20 | NUR ---
RECEIVED BEDSIDE REPORT FROM MILK RECEIVER NURSE. PATIENT IS AWAKE, ALERT AND ORIENTEDX4. NO SIGNS OF DISTRESS ON RA. PATIENT IS AMBULATORY. CONTINENT. IV ON L FA 22G INFUSING NS AT 125. CLEAN, DRY AND INTACT. SKIN INTACT. PATIENT ABLE TO MAKE NEEDS KNOWN. BED IN LOW POSITION. CALL LIGHT WITHIN REACH. WILL CONTINUE TO MONITOR
[2018-11-25] MEDS: BLOOD GLUCOSE MONITORING 1 DEV DEV FS SCH ×2 (07:30→11:30)
[2018-11-25 08:00] VITALS: BP 128/59
[2018-11-25 08:13] LABS: BASOPHILS % (AUTO) 0.2 % (0.0-2.0); EOSINOPHILS # (AUTO) 0.3 K/uL (0-0.4); EOSINOPHILS % (AUTO) 2.8 % (0.0-4.0); HEMATOCRIT 40.3 % (36-52); HEMOGLOBIN 13.1 g/dL (12.0-18.0); LYMPHOCYTES # (AUTO) 4.5 K/uL (2.0-11.5); LYMPHOCYTES % (AUTO) 38.6 % (20.5-51.1); MEAN CORPUSCULAR HEMOGLOBIN 27 pg (27-31); MEAN CORPUSCULAR HGB CONC 33 g/dL (33-37); MEAN CORPUSCULAR VOLUME 82.9 fL (80-94); MONOCYTES # (AUTO) 1.1 K/uL (0.8-1.0); MONOCYTES % (AUTO) 9.4 % (1.7-9.3); NEUTROPHILS # (AUTO) 5.8 K/uL (1.8-7.7); PLATELET COUNT (AUTO) 241 K/uL (140-450); RED BLOOD CELL COUNT(AUTO) 4.86 MIL/uL (4.20-6.10); RED CELL DISTRIBUTION WIDTH 13.5 % (11.6-13.7); WHITE BLOOD COUNT (AUTO) 11.8 K/uL (4.8-10.8)
[2018-11-25 08:22] LABS: ALBUMIN 2.8 g/dL (3.4-5.0); ANION GAP 9.7 (8-16); CARBON DIOXIDE 29.1 mmol/L (21-32); CREATININE 0.6 mg/dL (0.7-1.3); POTASSIUM 3.8 mmol/L (3.5-5.1); TOTAL BILIRUBIN 0.3 mg/dL (0.0-1.0)
[2018-11-25] MEDS: NACL 0.9% 1,000 ML IV SCH (09:30)
--- NOTE | 2018-11-25 09:30 | NUR ---
NEW IV BAG HUNG, NS AT 125. IV SITE IS L FA 22G INFUSING NS AT 125. CLEAN, DRY AND INTACT.
[2018-11-25] MEDS: LISINOPRIL 10 MG TAB PO SCH (09:31)
[2018-11-25] MEDS: INSULIN NPH HUM/REG INSULIN HM 100 UNIT/ML 10 ML VIAL SUBQ SCH (09:35)
--- NOTE | 2018-11-25 09:35 | NUR ---
ADMINISTERED MEDS. EDUCATED PATIENT ON SIDE EFFECTS. PATIENT TOLERATED WELL. WILL CONTINUE TO MONITOR THE PATIENT
--- NOTE | 2018-11-25 11:59 | NUR ---
PATIENT WANTED DRESSING CHANGED ON THE IV. CHANGED THE DRESSING. PATIENT STATED IT FEELS SO MUCH BETTER. WILL CONTINUE TO MONITOR
[2018-11-25] MEDS: INSULIN LISPRO SLIDING SCALE 100 UNITS/ML VIAL SUBQ PRN (12:57)
--- NOTE | 2018-11-25 12:58 | NUR ---
ADMINISTERED [place] HUMALOG PER SLIDING SCALE 8 UNITS. PATIENT EDUCATED ON SIDE EFFECTS. WILL CONTINUE TO MONITOR THE PATIENT
--- NOTE | 2018-11-25 13:32 | NUR ---
PATIENT WENT TO THE SHOWER. SL THE IV, COVERED THE IV.
--- NOTE | 2018-11-25 13:52 | NUR ---
PATIENT BACK IN BED. IV IS CLEAN, AND DRY. PATIENT HAS DISCHARGE ORDER
[2018-11-25] MEDS ORDERED: HUM7030 SUBQ (13:58)
--- NOTE | 2018-11-25 15:38 | NUR ---
PATIENT DOES NOT AGREE ON INSULIN ORDER, THEY SAID THEY NEED THE PENS. PAGED DR BERMUDEZ TO SEE IF HE CAN ELECTRONICALLY SEND IT TO PHARMACY ON AND
--- NOTE | 2018-11-25 16:20 | NUR ---
EDUCATED PATIENT ON DISEASE PROCESS, ABN S/SX, WHEN TO GO TO THE ER, EDUCATED ON MEDS, SENT TO PHARMACY [facility], [phone], EDUCATED ON FOLLOW UP W PCP. PATIENT VERBALIZED UNDERSTANDING. IV REMOVED. ID BANDS REMOVED. PATIENT LEFT IN STABLE CONDITION W HIS DAD.
--- NOTE | 2018-11-28 13:16 | NUR ---
CALLED OFFICE OF DR ABRAMS [phone] SPOKE TO CATRINA, FOLLOW-UP APPOINTMENT MADE ON 11/30/18 @215PM, [address] [place] [address]. CALLED PATIENT PHONE, SPOKE TO HIS MOTHER AISHAWRYA [phone], AND MADE AWARE OF THE APPOINTMENT DETAILS. AISHWARYA VERBALIZED UNDERSTANDING.
== END 2018-11-25 16:20 | disposition home or self-care (01) ==
LOC: MED 19:25 → MTU 11-24 02:48 → MMU 11-24 16:23
PROVIDERS: ADMIT Internal Medicine; ATTEND Internal Medicine
DX: E11.65 Type 2 diabetes mellitus with hyperglycemia (principal); E66.01 Morbid (severe) obesity due to excess calories; I10 Essential (primary) hypertension; R62.50 Unspecified lack of expected normal physiological development in childhood; Z79.4 Long term (current) use of insulin
CPT/HCPCS: 36415; 80053; 81003; 82948; 85025; 87081; 96361; 96372; 96374; 96376; 99285; G0378; J1815; J7030; 96375